=== PATIENT | female | born 1980 | race Two or more races ===

== ENCOUNTER 2024-03-30 12:44 | Emergency (ER) | payer OTHER ==
[~2024-03-30] VITALS: Ht 162.6 cm; Wt 89.8 kg
[2024-03-30] MEDS ORDERED: TDAP [DIPH/PERTUSSIS/TET] 0.5 ML VIAL IM ONE (13:00)
[2024-03-30] MEDS ORDERED: HYDROCODONE/APAP 5/325MG TABLET ONE (13:00)
[2024-03-30] MEDS: HYDROCODONE/APAP 5/325MG TABLET PO ONE (13:08)
[2024-03-30] MEDS: TDAP [DIPH/PERTUSSIS/TET] 0.5 ML VIAL IM ONE (13:08)
[2024-03-30] MEDS ORDERED: PSEU120T83 PO (14:57)
[2024-03-30] MEDS ORDERED: AMOX-430 PO (14:57)
[2024-03-30] MEDS ORDERED: KETO10TA2 PO (14:57)
[2024-03-30 15:19] VITALS: BP 124/76; TEMP 98.8; O2SAT 95
== END 2024-03-30 15:19 | disposition home or self-care (01) ==
LOC: ER 12:49
DX: S02.2XXA Fracture of nasal bones, initial encounter for closed fracture (principal); S01.81XA Laceration without foreign body of other part of head, initial encounter; F32.A Depression, unspecified; F41.9 Anxiety disorder, unspecified; Z91.018 Allergy to other foods; W22.8XXA Striking against or struck by other objects, initial encounter; Y93.89 Activity, other specified; Y92.89 Other specified places as the place of occurrence of the external cause; Y99.8 Other external cause status
CPT/HCPCS: 70450-TC; 70486-TC; 73030-TC; 90715

== ENCOUNTER 2024-04-08 09:48 | Emergency (ER) | payer OTHER ==
[~2024-04-08] VITALS: Ht 167.6 cm; Wt 89.8 kg
[~2024-04-08 09:48] MED LIST: AMOX-430 PO; KETO10TA2 PO; PSEU120T83 PO
[2024-04-08 09:50] VITALS: BP 121/64; TEMP 98
[2024-04-08 10:30] VITALS: O2SAT 97
== END 2024-04-08 10:43 | disposition home or self-care (01) ==
LOC: ER 09:53
DX: S01.81XA Laceration without foreign body of other part of head, initial encounter (principal); F32.A Depression, unspecified; F41.9 Anxiety disorder, unspecified; Z76.0 Encounter for issue of repeat prescription; Z91.018 Allergy to other foods; Z91.09 Other allergy status, other than to drugs and biological substances; X58.XXXA Exposure to other specified factors, initial encounter; Y93.89 Activity, other specified; Y92.89 Other specified places as the place of occurrence of the external cause; Y99.8 Other external cause status